=== PATIENT | female | born 1975 | race Caucasian/White ===

== ENCOUNTER 2022-08-12 16:51 | Emergency (ER) | payer OTHER | END 2022-08-12 18:45 | disposition left against medical advice (07) | LOC: ERS 16:51 | DX: Z53.29 Procedure and treatment not carried out because of patient's decision for other reasons (principal) ==

== ENCOUNTER 2022-08-13 15:52 | Emergency (ER) | payer OTHER | END 2022-08-13 19:10 | disposition home or self-care (01) | LOC: ERS 15:52 | DX: S39.012A Strain of muscle, fascia and tendon of lower back, initial encounter (principal); K21.9 Gastro-esophageal reflux disease without esophagitis; F17.210 Nicotine dependence, cigarettes, uncomplicated; I10 Essential (primary) hypertension | CPT/HCPCS: 99283 ==